=== PATIENT | female | born 1970 | race Caucasian/White ===

== ENCOUNTER 2019-05-08 08:22 | Emergency (ER) | payer SELFPAY ==
[~2019-05-08] VITALS: Ht 162.6 cm; Wt 62.6 kg
[2019-05-08 08:33] VITALS: BP 127/74
[2019-05-08 09:24] VITALS: BP 122/80
== END 2019-05-08 09:26 | disposition home or self-care (01) ==
LOC: MED 08:22
DX: G50.0 Trigeminal neuralgia (principal)
CPT/HCPCS: 99283

== ENCOUNTER 2019-07-25 16:39 | Emergency (ER) | payer SELFPAY ==
[~2019-07-25] VITALS: Ht 165.1 cm; Wt 63.5 kg
[2019-07-25 16:50] VITALS: BP 121/59
--- NOTE | 2019-07-25 17:00 | NUR ---
COMPLETED ASSESSMENT AT THIS TIME. PATIENT SITTING UP IN CHAIR. PATIENT STATES NO NEEDS AT THIS TIME. AAO.
[2019-07-25 17:35] VITALS: BP 121/59
--- NOTE | 2019-07-25 17:36 | NUR ---
Patient discharged with v/s stable. Written and verbal after care instructions given and explained. Patient alert, oriented and verbalized understanding of instructions. Ambulatory with steady gait. All questions addressed prior to discharge. ID band removed. Patient advised to follow up with PMD. Rx of NORCO, PREDNISONE given. Patient educated on indication of medication including possible reaction and side effects. Opportunity to ask questions provided and answered.
== END 2019-07-25 17:36 | disposition home or self-care (01) ==
LOC: MED 16:39
DX: G50.0 Trigeminal neuralgia (principal)
CPT/HCPCS: 99283